=== PATIENT | female | born 1930 | race Caucasian/White ===

== ENCOUNTER 2017-01-29 14:44 | Emergency (ER) | payer MEDICARE, OTHER ==
[2017-01-29] MEDS ORDERED: GLUCAGON INJ 1 MG VIAL SUBCU ONE (14:55)
--- NOTE | 2017-01-29 15:10 | ED.PDOC ---
History of Present Illness - General Chief Complaint: General Stated Complaint: pain swallowing Time Seen by Provider: 01/29/17 14:54 Source: patient Exam Limitations: no limitations - History of Present Illness Initial Comments: Penny Johnson 86 y/o female stated she was eating steak and mashed potatoes and food got stuck down her esophagus.Pain on the back of her throat on swallowing and drooling Stated it happened to her 4-5 times in the past Timing/Duration: 1-3 hours Severity: moderate Improving Factors: nothing Worsening Factors: eating Associated Symptoms: other - see hpi Review of Systems - Review of Systems Constitutional: States: no symptoms reported EENTM: States: see HPI Respiratory: States: no symptoms reported Cardiology: States: no symptoms reported Gastrointestinal/Abdominal: States: no symptoms reported Genitourinary: States: no symptoms reported Musculoskeletal: States: no symptoms reported Skin: States: no symptoms reported Neurological: States: no symptoms reported Past Medical History (General) - Patient Medical History Hx Hypertension: Yes Surgical History: no surgical history - Social History Hx Tobacco Use: No Hx Chewing Tobacco Use: No Hx Alcohol Use: No Hx Substance Use: No Hx Physical Abuse: No Hx Emotional Abuse: No Hx Suspected Abuse: No - Activities of Daily Living Patient Lives Alone: No - children Family Medical History - Family History Mother Family History: Unknown Physical Exam - Physical Exam General Appearance: Alert, Anxious, No apparent distress Eye Exam: bilateral normal Ears, Nose, Throat: hearing grossly normal, normal pharynx Neck: non-tender, supple Respiratory: chest non-tender, lungs clear, normal breath sounds, no respiratory distress, other - speaks in full sentences Cardiovascular/Chest: normal peripheral pulses, regular rate, rhythm, no murmur Peripheral Pulses: radial,right: 1+, radial,left: 1+ Gastrointestinal/Abdominal: normal bowel sounds, non tender, soft, no organomegaly Back Exam: normal inspection, no CVA tenderness Extremity: non-tender, normal inspection, no pedal edema, no calf tenderness Neurologic: no motor/sensory deficits, alert, normal mood/affect, oriented x 3 Skin Exam: normal color, warm/dry Lymphatic: no adenopathy Progress - Progress Progress: 01/29/17 16:07 Vital Signs - 8 hr 01/29/17 14:44 Temperature 97.4 F L Pulse Rate [ 76 Left Radial] Respiratory 20 Rate O2 Sat by Pulse 97 Oximetry Laboratory Tests 01/29/17 15:12 POC Glucose 105 - Results/Orders Results/Orders: After given glucagon SQ an hour later felt relieved no drooling no foreign body sensation noted Able to drink sprite no throwing up. - EKG/XRAY/CT XRAY: chest - no acute abnormality Departure - Departure Clinical Impression: Impacted foreign body in esophagus Qualifiers: Encounter type: initial encounter Qualified Code(s): T18.108A - Unspecified foreign body in esophagus causing other injury, initial encounter Time of Disposition: 16:08 Disposition: Discharge to Home or Self Care Departure Forms: ED Discharge - Pt. Copy, Patient Portal Self Enrollment Instructions: DI for Removal of Foreign Body From Esophagus Referrals: KESHAWN LEMUS [Primary Care Provider] - 1-2 Weeks Additional Instructions: FOLLOW UP WITH PRIMARY MD FOR REFERRAL TO [facility] UNTIL BETTER
--- NOTE | 2017-01-29 15:33 | RAD ---
PROCEDURE: Chest,2 Views CLINICAL HISTORY: choking INDICATION: Same as above COMPARISON: None TECHNIQUE: PA and and lateral chest radiographs were obtained. FINDINGS: There is no visualization of any radiopaque foreign body in the evaluated portions of the chest. Scoliotic curvature of the thoracic spine is noted . Degenerative changes are seen in the bilateral humeral heads. There are no discrete airspace infiltrates, pneumothoraces or pleural effusions. The pulmonary vascularity is normal The cardiomediastinal silhouette is unremarkable for patient's age and sex. IMPRESSION: There is no acute pleural-parenchymal process seen in the imaged lung elizalde. Place of interpretation: [facility]. Electronically signed by: Lee Aguayo MD 01/29/2017 3:32 PM CDT Workstation: [id number]
[2017-01-29 18:40] VITALS: TEMP 97.8; O2SAT 96
[2017-01-29 18:41] VITALS: BP 138/78
== END 2017-01-29 16:44 | disposition home or self-care (01) ==
LOC: ER 14:44
DX: T18.128A Food in esophagus causing other injury, initial encounter (principal); I10 Essential (primary) hypertension; Y92.9 Unspecified place or not applicable
CPT/HCPCS: 71020; 82948; J1610